=== PATIENT | male | born 1975 | race Caucasian/White ===

== ENCOUNTER 2018-03-13 16:12 | Emergency (ER) | payer MEDICAID ==
[~2018-03-13] VITALS: Ht 165.1 cm; Wt 70.5 kg
[2018-03-13 16:14] VITALS: BP 123/91
[2018-03-13] MEDS ORDERED: LIDOCAINE 1%/EPI 1:100,000 30 ML VIAL INJ ONE (17:00)
[2018-03-13] MEDS ORDERED: PERTUSS(ACELL),DIPH,TET VAC/PF 0.5 ML VIAL IM ONE (17:00)
[2018-03-13] MEDS ORDERED: SULFAMETHOX/TRIMETH DS 800-160 MG/TABLET PO ONE (17:00)
[2018-03-13] MEDS ORDERED: IBUPROFEN 600 MG TABLET PO ONE (17:00)
[2018-03-13] MEDS ORDERED: LIDOCAINE 1%/EPI 1:200,000/PF 10 ML VIAL INJ ONE (17:15)
== END 2018-03-13 18:17 | disposition home or self-care (01) ==
LOC: EMS 16:13
DX: L02.415 Cutaneous abscess of right lower limb (principal); F17.210 Nicotine dependence, cigarettes, uncomplicated
CPT/HCPCS: 10060; 90471; 90715; 99283; 99406; J3490